=== PATIENT | female | born 1990 ===

== ENCOUNTER 2017-11-29 10:19 | Outpatient (CLI) | payer OTHER ==
[~2017-11-29] VITALS: Ht 152.4 cm; Wt 63.5 kg
== END 2017-11-29 10:40 | disposition home or self-care (01) ==
LOC: OFIC 805 10:19
DX: R22.1 Localized swelling, mass and lump, neck (principal); J31.0 Chronic rhinitis; J34.3 Hypertrophy of nasal turbinates; B27.80 Other infectious mononucleosis without complication; M62.838 Other muscle spasm

== ENCOUNTER 2018-07-13 17:02 | Emergency (ER) | payer OTHER ==
[~2018-07-13] VITALS: Ht 124.5 cm; Wt 68.0 kg
[2018-07-13] MEDS ORDERED: NEURONTIN300 MG PO (17:26)
[2018-07-13] MEDS ORDERED: PAMELOR25 MG PO (17:26)
[2018-07-13] MEDS ORDERED: TOPROL XL50 M1 PO (17:27)
[2018-07-13] MEDS ORDERED: SKELAXIN800 MG PO (17:27)
[2018-07-13] MEDS ORDERED: AMBIEN5 MG PO (17:27)
[2018-07-13] MEDS ORDERED: EFFEXOR XR150 MG (17:27)
[2018-07-13] MEDS ORDERED: [UNRECOGNIZED DRUG - OTHER] (17:28)
[2018-07-13] MEDS ORDERED: NEURONTIN300 MG (17:28)
[2018-07-13] MEDS ORDERED: AMITRIPTYLINE H25 MG (17:28)
== END 2018-07-13 20:14 | disposition home or self-care (01) ==
LOC: ER 17:02
DX: R30.0 Dysuria (principal); R10.32 Left lower quadrant pain